=== PATIENT | female | born 1950 | race Caucasian/White ===

== ENCOUNTER 2018-02-02 12:38 | Emergency (ER) | payer MEDICARE, OTHER, SELFPAY ==
[2018-02-02 14:45] LABS: #Basophils 0.1 thou/uL (0.0-0.2); #Eosinphils 0.2 thou/uL (0.0-0.7); #Lymphocytes 2.4 thou/uL (1.20-3.40); #Monocytes 0.7 thou/uL (0.11-0.59); #Neutrophils 6.8 thou/uL (1.40-6.50); %Eosinophils 2.1 % (0.0-10.0); %Lymphocytes 23.8 % (21.0-51.0); %Monocytes 6.6 % (0.0-10.0); %Neutrophils 66.5 % (42.0-75.0); Hemoglobin 14.7 g/dL (12.0-16.0); Mean Corpuscular HGB CONC 32.9 g/dL (32.0-36.0); Mean Corpuscular Volume 91.4 fL (78.0-98.0); Mean Platelet Volume 8.2 fL (7.4-10.4); Platelet Count 156 thou/uL (130-400); RBC Distribution Width 12.1 % (11.5-14.5); Red Blood Cell (RBC) Count 4.89 mill/uL (4.20-5.40); White Blood Cell (WBC) Count 10.3 thou/uL (4.8-10.8)
[2018-02-02 14:56] LABS: ALT (SGPT) 14 U/L (8-55); AST (SGOT) 14 U/L (5-34); Albumin 4.1 g/dL (3.4-4.8); Alkaline Phosphatase 104 U/L (40-150); Anion Gap 14 mmol/L (10-20); BUN (Urea Nitrogen) 15 mg/dL (9.8-20.1); Bilirubin, Total 0.3 mg/dL (0.2-1.2); Calc. Creatinine Clearance 0 mL/min (70-130); Calcium 9.3 mg/dL (7.8-10.44); Carbon Dioxide 25 mmol/L (23-31); Chloride 102 mmol/L (98-107); Estimated GFR-MDRD 77; Globulin 3.4 g/dL (2.4-3.5); Glucose 103 mg/dL (80-115); Potassium 3.8 mmol/L (3.5-5.1); Protein, Total 7.5 g/dL (6.0-8.3); Sodium 137 mmol/L (136-145)
[2018-02-02 15:00] LABS: Troponin I Less than 0.010 ng/mL (< 0.028)
== END 2018-02-02 15:35 | disposition home or self-care (01) ==
LOC: ERS 12:38
DX: I10 Essential (primary) hypertension (principal); Z79.899 Other long term (current) drug therapy
CPT/HCPCS: 36415; 80053; 84484; 85025; 93005

== ENCOUNTER 2018-03-13 08:56 | Outpatient (CLI) | payer MEDICARE, OTHER ==
--- NOTE | 2018-03-13 10:26 | ULT ---
RENAL ULTRASOUND: Date: 03-13-18 Comparison: None. History: Essential hypertension. Technique: Multiplanar grayscale sonographic imaging of the kidneys and urinary bladder obtained. FINDINGS: Right kidney measures 10.6 x 4.8 x 4.6 cm and left kidney measures 10.6 x 6.2 x 5.7 cm. There is no h ydronephrosis or solid renal mass noted on either side. Urinary bladder appears grossly unremarkable. There is a nonspecific, nonshadowing hyperechoic focus within the mid to lower pole of the left kidne y which could represent a small stone or an echogenic renal mass measuring in the 6-7 mm range. IMPRESSION: Nonspecific hypoechoic focus in mid/lower pole left kidney. No hydronephrosis. POS: [facility]
--- NOTE | 2018-03-13 12:23 | BD ---
DEXA BONE DENSITY EXAM: HISTORY: A 67-year-old postmenopausal female for screening. FINDINGS: Lumbar Spine: BMD (g/cm2) L1 1.085 T-Score: 0.9 L2 1.111 T-Score: 0.8 L3 1.174 T-Score: 0.8 L4 1.177 T-Score: 1.1 L1-L4 1.143 T-Score: 0.9 Femoral Neck: 0.771 T-Score: -0.7 Total Femur: 1.082 T-Score: 1.2 Impression: Normal bone mineral density. POS: [facility]
== END 2018-03-13 08:57 | disposition home or self-care (01) ==
LOC: BICULT 08:56
PROVIDERS: ATTEND Family Medicine
DX: Z13.820 Encounter for screening for osteoporosis (principal); M81.0 Age-related osteoporosis without current pathological fracture; I10 Essential (primary) hypertension
CPT/HCPCS: 76770; 77080

== ENCOUNTER 2018-05-12 08:03 | Outpatient (CLI) | payer MEDICARE, OTHER | END 2018-05-12 08:04 | disposition home or self-care (01) | LOC: BICMAMMO 08:03 | PROVIDERS: ATTEND Family Medicine | DX: Z12.31 Encounter for screening mammogram for malignant neoplasm of breast (principal) | CPT/HCPCS: 77063; 77067 ==

== ENCOUNTER 2018-11-28 09:39 | Outpatient (CLI) | payer MEDICARE, OTHER ==
[2018-11-28] MEDS ORDERED: Gadobenate Dimeglumine 529 MG/1 ML (20ML VIAL) ONE (11:03)
--- NOTE | 2018-11-28 12:57 | MRI ---
MRI OF BRAIN WITH AND WITHOUT CONTRAST MRI OF PITUITARY WITH AND WITHOUT CONTRAST: COMPARISON: No prior imaging comparison available. FINDINGS: There is age-appropriate size of the ventricular system. No acute territorial infarction, mass effec t, or midline shift. Mild chronic ischemic disease of the cerebral white matter is present. No path ologic intraaxial enhancement. There is prominent volume of the region of the pituitary gland with homogeneous enhancement. Pituita ry measures approximately 8 mm in craniocaudal dimension. No discernible hypoattenuating lesion to i ndicate microadenoma and no mass greater than 1 cm is identified to indicate macroadenoma. No mass e ffect upon the pituitary infundibulum or optic chiasm. IMPRESSION: 1. No acute intracranial abnormalities. 2. No discernible pituitary lesion. There is mild prominence in volume of the pituitary gland for p atient's age, although, this demonstrates homogeneous enhancement and no size characteristics to conf irm a macroadenoma. 3. Mild chronic ischemic disease of the cerebral white matter. POS: [facility]
== END 2018-11-28 09:40 | disposition home or self-care (01) ==
LOC: BICMRI 09:39
PROVIDERS: ATTEND Family Medicine
DX: H53.469 Homonymous bilateral field defects, unspecified side (principal); I67.82 Cerebral ischemia
CPT/HCPCS: 70553; 82565; A9577

== ENCOUNTER 2020-01-30 09:55 | Outpatient (CLI) | payer MEDICARE, OTHER ==
--- NOTE | 2020-01-30 10:32 | MMO ---
Bilateral MAMMO Bilat Screen [facility]. CLINICAL HISTORY: Patient is 69 years old and is seen for screening. The patient has no family history of breast cancer. The patient has no personal history of cancer. VIEWS: The views performed were: bilateral craniocaudal with tomosynthesis and bilateral mediolateral oblique with tomosynthesis. FILMS COMPARED: The present examination has been compared to a prior imaging study performed at [facility] on 05/12/2018. This study has been interpreted with the assistance of computer-aided detection. MAMMOGRAM FINDINGS: There are scattered fibroglandular densities. There are stable benign appearing calcifications seen in both breasts. There are no suspicious masses, suspicious calcifications, or new areas of architectural distortion. IMPRESSION: THERE IS NO MAMMOGRAPHIC EVIDENCE OF MALIGNANCY. A ROUTINE FOLLOW-UP MAMMOGRAM IN 1 YEAR IS RECOMMENDED. THE RESULTS OF THIS EXAM WERE SENT TO THE PATIENT. ACR BI-RADS Category 2 - Benign finding MAMMOGRAPHY NOTE: 1. A negative mammogram report should not delay a biopsy if a dominant of clinically suspicious mass is present. 2. Approximately 10% to 15% of breast cancers are not detected by mammography. 3. Adenosis and dense breasts may obscure an underlying neoplasm. Reported by: GAGE CASTANEDA MD Electonically Signed: [id number]
== END 2020-01-30 09:56 | disposition home or self-care (01) ==
LOC: BICMAMMO 09:55
PROVIDERS: ATTEND Family Medicine
DX: Z12.31 Encounter for screening mammogram for malignant neoplasm of breast (principal)
CPT/HCPCS: 77063; 77067

== ENCOUNTER 2021-02-04 10:24 | Outpatient (CLI) | payer MEDICARE, OTHER | END 2021-02-04 10:25 | disposition home or self-care (01) | LOC: BICULT 10:24 | PROVIDERS: ATTEND Family Medicine | DX: Z12.31 Encounter for screening mammogram for malignant neoplasm of breast (principal); N18.32 Chronic kidney disease, stage 3b | CPT/HCPCS: 76770; 77063; 77067; 93975 ==

== ENCOUNTER 2023-03-15 10:10 | Outpatient (CLI) | payer MEDICARE, OTHER | END 2023-03-15 10:11 | disposition home or self-care (01) | LOC: BICMAMMO 10:10 | PROVIDERS: ATTEND Family Medicine | DX: Z12.31 Encounter for screening mammogram for malignant neoplasm of breast (principal) | CPT/HCPCS: 77063; 77067 ==

== ENCOUNTER 2024-03-21 13:05 | Outpatient (CLI) | payer MEDICARE, OTHER | END 2024-03-21 13:06 | disposition home or self-care (01) | LOC: BICMAMMO 13:05 | PROVIDERS: ATTEND Family Medicine | DX: Z12.31 Encounter for screening mammogram for malignant neoplasm of breast (principal) | CPT/HCPCS: 77063; 77067 ==

== ENCOUNTER 2025-03-22 09:15 | Outpatient (CLI) | payer MEDICARE, OTHER | END 2025-03-22 09:16 | disposition home or self-care (01) | LOC: BICMAMMO 09:15 | PROVIDERS: ATTEND Family Medicine | DX: Z12.31 Encounter for screening mammogram for malignant neoplasm of breast (principal); R92.1 Mammographic calcification found on diagnostic imaging of breast | CPT/HCPCS: 77063; 77067 ==